=== PATIENT | female | born 1955 | race African-American/Black ===

== ENCOUNTER → 2016-05-02 | Outpatient (CLI) | payer OTHER ==
[~2016-05-02] MED LIST: ALEN70TA13 PO; ASPI-1035 PO; CARV3.1242 PO; FURO20TA4 PO; LISI2.5T47 PO; POTA20TA75 PO; SIMV20TA6 PO; [UNRECOGNIZED DRUG - OTHER]
== END | disposition home or self-care (01) ==
LOC: RAD 11:21
PROVIDERS: ATTEND Internal Medicine Clinical Cardiac Electrophysiology
DX: I50.22 Chronic systolic (congestive) heart failure (principal); I42.9 Cardiomyopathy, unspecified; J44.9 Chronic obstructive pulmonary disease, unspecified; Z95.810 Presence of automatic (implantable) cardiac defibrillator
CPT/HCPCS: 71020

== ENCOUNTER 2018-10-05 16:27 | Emergency (ER) | payer OTHER ==
[~2018-10-05] VITALS: Ht 167.6 cm; Wt 63.0 kg
[~2018-10-05 16:27] MED LIST changes: -ALEN70TA13 PO; +ALEN70TA68 PO; +APIX5TAB PO; -ASPI-1035 PO; +ASPI-1393 PO; +FERR-63 PO; +LISI-186 PO; -LISI2.5T47 PO; +POTA20TA12 PO; -POTA20TA75 PO; -[UNRECOGNIZED DRUG - OTHER]
[2018-10-05 16:31] VITALS: BP 122/77
== END 2018-10-05 18:41 | disposition home or self-care (01) ==
LOC: ER 16:43
DX: S90.111A Contusion of right great toe without damage to nail, initial encounter (principal); S80.02XA Contusion of left knee, initial encounter; I11.0 Hypertensive heart disease with heart failure; I50.9 Heart failure, unspecified; E78.00 Pure hypercholesterolemia, unspecified; M81.0 Age-related osteoporosis without current pathological fracture; M85.80 Other specified disorders of bone density and structure, unspecified site; Z88.8 Allergy status to other drugs, medicaments and biological substances; Z88.1 Allergy status to other antibiotic agents; Z88.5 Allergy status to narcotic agent; Z88.2 Allergy status to sulfonamides; Z90.2 Acquired absence of lung [part of]; Z95.0 Presence of cardiac pacemaker; W18.30XA Fall on same level, unspecified, initial encounter; Y93.9 Activity, unspecified; Y92.89 Other specified places as the place of occurrence of the external cause; Y99.8 Other external cause status
CPT/HCPCS: 73562; 73630; 99283

== ENCOUNTER 2023-05-01 18:55 | Emergency (ER) | payer SELFPAY ==
[~2023-05-01] VITALS: Ht 165.1 cm; Wt 59.9 kg
[~2023-05-01 18:55] MED LIST changes: -ALEN70TA68 PO; +ALEN70TA79 PO; -ASPI-1393 PO; +ASPI-1497 PO; +POTA-194 PO; -POTA20TA12 PO; +SIMV-43 PO; -SIMV20TA6 PO
[2023-05-01 19:01] VITALS: O2SAT 100
[2023-05-01 20:55] LABS: BASOPHILS % 1.1 % (0.0-2.0); EOSINOPHILS % 0.8 % (0.0-5.0); HEMATOCRIT. 40.8 % (36.0-48.0); HEMOGLOBIN. 13.1 g/dL (12.0-16.0); LYMPHOCYTES % 32.5 % (20.0-50.0); MEAN CORPUSCULAR HEMOGLOBIN 27.7 pg (28.0-32.0); MEAN CORPUSCULAR HGB CONC 32.2 g/dL (31.0-37.0); MEAN CORPUSCULAR VOLUME 86.1 fL (81.0-99.0); MONOCYTES % 9.1 % (2.0-8.0); NEUTROPHILS % 56.5 % (40.0-76.0); PLATELET 183 x1000/uL (130-400); RED BLOOD CELL COUNT 4.74 mill/uL (4.2-5.4); RED CELL DISTRIBUTION WIDTH 14.8 % (11.6-14.6); WHITE BLOOD COUNT 5.1 x1000/uL (4.5-11.0)
[2023-05-01 21:08] LABS: ALANINE AMINOTRANSFERASE 11 IU/L (10-49); ALBUMIN 4.3 g/dL (3.2-4.8); ASPARTATE AMINOTRANSFERASE 19 IU/L (<34); BILIRUBIN TOTAL 0.9 mg/dL (0.1-1.0); CALCIUM 10.1 mg/dL (8.7-10.4); CARBON DIOXIDE 31 mEq/L (21-32); CHLORIDE 107 mEq/L (98-107); CREATININE 0.8 mg/dL (0.6-1.0); GLUCOSE 107 mg/dL (70-105); POTASSIUM 4.4 mEq/L (3.5-5.1); PROTEIN TOTAL 7.2 g/dL (6.0-8.3); SODIUM 143 mEq/L (136-145); TROPONIN I HIGH SENSITIVITY 4 ng/L (3.0-34); UREA NITROGEN BLOOD 11 mg/dL (9-23)
[2023-05-01 22:02] LABS: TROPONIN I HIGH SENSITIVITY 5 ng/L (3.0-34)
[2023-05-02 00:39] LABS: TROPONIN I HIGH SENSITIVITY 4 ng/L (3.0-34)
[2023-05-02 01:26] VITALS: BP 140/88; PULSE 70; RESP 18; TEMP 98.2
== END 2023-05-02 04:38 | disposition home or self-care (01) ==
LOC: ER 18:55
DX: R07.89 Other chest pain (principal); I11.0 Hypertensive heart disease with heart failure; I50.9 Heart failure, unspecified; E78.00 Pure hypercholesterolemia, unspecified; Z95.0 Presence of cardiac pacemaker; Z79.899 Other long term (current) drug therapy
CPT/HCPCS: 36415; 71045; 80053; 83880; 84484; 85025; 93005; 99285